=== PATIENT | male | born 1995 | race Caucasian/White ===

== ENCOUNTER 2019-01-16 22:57 | Emergency (ER) | payer SELFPAY ==
[~2019-01-16] VITALS: Ht 180.3 cm; Wt 130.6 kg
[2019-01-16 23:33] VITALS: Ht 180.3 cm; Wt 130.6 kg
[2019-01-17 00:50] VITALS: BP 132/82
== END 2019-01-17 00:50 | disposition home or self-care (01) ==
LOC: ED 22:57
DX: B02.9 Zoster without complications (principal)